=== PATIENT | male | born 1970 | race Caucasian/White ===

== ENCOUNTER → 2016-10-05 | Outpatient (CLI) | payer OTHER ==
--- NOTE | 2016-10-06 04:46 | REP ---
Clinical: Lung screening. Smoking history. Technique: Axial noncontrast low-dose images from the thoracic inlet to the upper abdomen using lung screening technique. Comparison: None. Findings: Very minimal scattered apical and subpleural scarring is appreciated along with 4 mm calcified left lower lobe granuloma. No significant consolidation or soft tissue nodule/mass lesion identified. No pleural effusion. Tracheobronchial tree is patent. Mediastinum is grossly normal. Impression: Lung-RADS category 1. No suspicious nodule/lesion. Annual low-dose CT screening may be warranted based on Lung-RADS management recommendations. Signed by True Wynn MD 10/06/2016 04:37 A
== END ==
LOC: M RAD 08:49
PROVIDERS: ATTEND Neuromusculoskeletal Medicine & OMM
DX: Z87.891 Personal history of nicotine dependence (principal)